=== PATIENT | male | born 1970 | race Caucasian/White ===

== ENCOUNTER 2018-11-30 16:41 | Inpatient (IN) | payer OTHER ==
[2018-11-30] MEDS ORDERED: ZOLPIDEM 5 MG TAB PO (17:00)
[2018-11-30] MEDS ORDERED: VANCOMYCIN IV PER PHARMACY XX (17:00)
[2018-11-30] MEDS: morphine 2 MG INJ IV (17:22)
[2018-11-30] MEDS: LORAZEPAM 2 MG INJ IV (17:22)
[2018-11-30 18:29] LABS: BLOOD UREA NITROGEN 10 mg/dl (7-20)
[2018-11-30 18:29] LABS: CREATININE 0.62 mg/dl (0.61-1.24)
[2018-11-30] MEDS: VANCOMYCIN 1.5 GM/NS 250 ML 250 ML IVPB (20:38)
[2018-11-30] MEDS: ACETAMINOPHEN 325 MG TAB PO (20:39)
[2018-11-30] MEDS: CEFEPIME 1GM/50 ML (PMX) 50 ML IVPB (23:39)
[2018-12-01] MEDS: VANCOMYCIN 750 MG (PMX) 250 ML IVPB ×2 (05:05→14:30)
[2018-12-01 05:44] LABS: ADD MAN DIFF? NO
[2018-12-01 05:55] LABS: BASOPHIL # 0.1 10^3/ul (0.0-0.1); BASOPHILS % 0.4 % (0.0-2.0); EOSINOPHILS % 0.2 % (0.0-7.0); HEMATOCRIT 26.6 % (42.0-52.0); HEMOGLOBIN 8.9 g/dl (14.0-18.0); LYMPHOCYTES # 1.7 10^3/ul (0.8-2.9); LYMPHOCYTES % 14.3 % (15.0-51.0); MEAN CORPUSCULAR HEMOGLOBIN 32.8 pg (29.0-33.0); MEAN CORPUSCULAR HGB CONC 33.5 g/dl (32.0-37.0); MEAN CORPUSCULAR VOLUME 98.2 fl (82.0-101.0); MEAN PLATELET VOLUME 9.8 fl (7.4-10.4); MONOCYTE # 1.5 10^3/ul (0.3-0.9); MONOCYTES % 12.2 % (0.0-11.0); NEUTROPHIL # 8.6 10^3/ul (1.6-7.5); NEUTROPHILS % 72.1 % (39.0-77.0); PLATELET COUNT 198 10^3/UL (140-415); RED BLOOD COUNT 2.71 10^6/ul (4.70-6.10); RED CELL DISTRIBUTION WIDTH 11.9 % (11.5-14.5)
[2018-12-01 06:10] LABS: HEMOGLOBIN A1C 5.3 % (0-5.9)
[2018-12-01 06:39] LABS: ANION GAP 9 (5-13); BLOOD UREA NITROGEN 9 mg/dl (7-20); CARBON DIOXIDE 28 mmol/L (21-31); CHLORIDE 96 mmol/L (97-110); CREATININE 0.53 mg/dl (0.61-1.24); Estimated GFR > 60 mL/min (>60); GLUCOSE 128 mg/dl (70-220); MAGNESIUM 1.5 mg/dl (1.7-2.5); PHOSPHORUS 1.7 mg/dl (2.5-4.9); POTASSIUM 3.8 mmol/L (3.5-5.1); SODIUM 133 mmol/L (135-144)
[2018-12-01] MEDS: SOD CHLORIDE 0.9% 1,000 ML IV ×3 (07:52→18:38)
[2018-12-01] MEDS: ACETAMINOPHEN 325 MG TAB PO (07:53)
[2018-12-01] MEDS: HYDROCODONE/APAP (5/325) TAB PO ×2 (08:30→15:37)
[2018-12-01] MEDS: CHLORDIAZEPOXIDE 25 MG CAP PO ×3 (08:30→21:43)
[2018-12-01] MEDS: MULTIVITAMINS THERAPEUTIC TAB PO (08:30)
[2018-12-01] MEDS: FOLIC ACID 1 MG TAB PO (08:30)
[2018-12-01] MEDS: AMLODIPINE 5 MG TAB PO (08:31)
[2018-12-01] MEDS: CEFEPIME 1GM/50 ML (PMX) 50 ML IVPB ×2 (08:31→21:34)
[2018-12-01] MEDS: THIAMINE 100 MG TAB PO (08:31)
[2018-12-01] MEDS: MAGNESIUM SULFATE 2 GM/50 ML 50 ML IVPB (09:34)
[2018-12-01] MEDS: POTASSIUM CHLORIDE 100 ML IVPB (12:18)
[2018-12-01] MEDS: SOD CHLORIDE 0.9% 100 ML (16:44)
[2018-12-01] MEDS: IOHEXOL 300MG/ML 150 ML BTL (16:44)
[2018-12-01 20:05] LABS: ADD UMIC NO; UR ASCORBIC ACID NEGATIVE (NEGATIVE); UR BILIRUBIN (Dip) NEGATIVE (NEGATIVE); UR BLOOD (Dip) NEGATIVE (NEGATIVE); UR CLARITY CLEAR (CLEAR); UR COLOR YELLOW (YELLOW); UR GLUCOSE (Dip) NEGATIVE (NEGATIVE); UR KETONES (Dip) TRACE mg/dL (NEGATIVE); UR LEUKOCYTE ESTERASE (Dip) NEGATIVE Leu/ul (NEGATIVE); UR NITRITE (Dip) NEGATIVE (NEGATIVE); UR SPECIFIC GRAVITY (Dip) 1.038 (1.003-1.030); UR TOTAL PROTEIN (Dip) NEGATIVE (NEGATIVE); UR UROBILINOGEN (Dip) 2+ mg/dL (NEGATIVE)
[2018-12-01 20:28] LABS: VANCOMYCIN,TROUGH 7.9 ug/ml (10.0-20.0)
[2018-12-01] MEDS: VANCOMYCIN 1 GM 250 ML IVPB (21:34)
[2018-12-01] MEDS: morphine 2 MG INJ IV (21:56)
[2018-12-02] MEDS: VANCOMYCIN 1 GM 250 ML IVPB ×3 (04:38→20:35)
[2018-12-02] MEDS: SOD CHLORIDE 0.9% 1,000 ML IV ×3 (05:18→23:28)
[2018-12-02 06:51] LABS: ADD MAN DIFF? NO
[2018-12-02 06:53] LABS: BASOPHILS % 0.5 % (0.0-2.0); EOSINOPHILS % 0.4 % (0.0-7.0); HEMATOCRIT 26.9 % (42.0-52.0); HEMOGLOBIN 8.9 g/dl (14.0-18.0); LYMPHOCYTES # 1.4 10^3/ul (0.8-2.9); LYMPHOCYTES % 17.9 % (15.0-51.0); MEAN CORPUSCULAR HEMOGLOBIN 33.2 pg (29.0-33.0); MEAN CORPUSCULAR HGB CONC 33.1 g/dl (32.0-37.0); MEAN CORPUSCULAR VOLUME 100.4 fl (82.0-101.0); MEAN PLATELET VOLUME 9.8 fl (7.4-10.4); MONOCYTE # 0.9 10^3/ul (0.3-0.9); MONOCYTES % 11.1 % (0.0-11.0); NEUTROPHIL # 5.6 10^3/ul (1.6-7.5); NEUTROPHILS % 69.6 % (39.0-77.0); PLATELET COUNT 237 10^3/UL (140-415); RED BLOOD COUNT 2.68 10^6/ul (4.70-6.10); RED CELL DISTRIBUTION WIDTH 11.8 % (11.5-14.5)
[2018-12-02 07:15] LABS: ANION GAP 10 (5-13); BLOOD UREA NITROGEN 7 mg/dl (7-20); CALCIUM 7.9 mg/dl (8.4-10.2); CARBON DIOXIDE 27 mmol/L (21-31); CHLORIDE 100 mmol/L (97-110); CREATININE 0.51 mg/dl (0.61-1.24); Estimated GFR > 60 mL/min (>60); GLUCOSE 110 mg/dl (70-220); MAGNESIUM 1.8 mg/dl (1.7-2.5); POTASSIUM 3.2 mmol/L (3.5-5.1); SODIUM 137 mmol/L (135-144)
[2018-12-02] MEDS: THIAMINE 100 MG TAB PO (08:57)
[2018-12-02] MEDS: NEOMYC/POLYMYX/BACIT 30 GM OINT TOP (08:57)
[2018-12-02] MEDS: DOCUSATE SODIUM 100 MG CAP PO (08:57)
[2018-12-02] MEDS: CEFEPIME 1GM/50 ML (PMX) 50 ML IVPB ×2 (08:57→20:35)
[2018-12-02] MEDS: FOLIC ACID 1 MG TAB PO (08:58)
[2018-12-02] MEDS: AMLODIPINE 5 MG TAB PO (08:58)
[2018-12-02] MEDS: CHLORDIAZEPOXIDE 25 MG CAP PO ×3 (08:58→20:35)
[2018-12-02] MEDS: MULTIVITAMINS THERAPEUTIC TAB PO (08:58)
[2018-12-02] MEDS: morphine 2 MG INJ IV ×2 (09:10→16:11)
[2018-12-02] MEDS: ACETAMINOPHEN 325 MG TAB PO (09:18)
[2018-12-02] MEDS: POTASSIUM CHLORIDE (SR) 20 MEQ TAB PO (17:58)
[2018-12-02] MEDS: HYDROCODONE/APAP (5/325) TAB PO ×2 (18:06→23:23)
[2018-12-02] MEDS: ONDANSETRON 4 MG INJ IV (18:07)
[2018-12-03 03:52] LABS: ADD MAN DIFF? NO
[2018-12-03 04:05] LABS: WHITE BLOOD COUNT 6.8 10^3/ul (4.8-10.8)
[2018-12-03 04:05] LABS: BASOPHIL # 0.1 10^3/ul (0.0-0.1); BASOPHILS % 0.7 % (0.0-2.0); EOSINOPHILS # 0.1 10^3/ul (0.0-0.5); EOSINOPHILS % 0.7 % (0.0-7.0); HEMATOCRIT 24.5 % (42.0-52.0); LYMPHOCYTES # 1.5 10^3/ul (0.8-2.9); LYMPHOCYTES % 22.3 % (15.0-51.0); MEAN CORPUSCULAR HEMOGLOBIN 32.9 pg (29.0-33.0); MEAN CORPUSCULAR HGB CONC 32.7 g/dl (32.0-37.0); MEAN CORPUSCULAR VOLUME 100.8 fl (82.0-101.0); MEAN PLATELET VOLUME 9.3 fl (7.4-10.4); NEUTROPHIL # 4.2 10^3/ul (1.6-7.5); NEUTROPHILS % 61.7 % (39.0-77.0); PLATELET COUNT 272 10^3/UL (140-415); RED BLOOD COUNT 2.43 10^6/ul (4.70-6.10); RED CELL DISTRIBUTION WIDTH 11.9 % (11.5-14.5)
[2018-12-03 04:12] LABS: ANION GAP 8 (5-13); BLOOD UREA NITROGEN 6 mg/dl (7-20); CARBON DIOXIDE 27 mmol/L (21-31); CHLORIDE 101 mmol/L (97-110); CREATININE 0.58 mg/dl (0.61-1.24); Estimated GFR > 60 mL/min (>60); GLUCOSE 107 mg/dl (70-220); POTASSIUM 3.9 mmol/L (3.5-5.1); SODIUM 136 mmol/L (135-144)
[2018-12-03 04:46] LABS: VANCOMYCIN,TROUGH 9.9 ug/ml (10.0-20.0)
[2018-12-03] MEDS: SOD CHLORIDE 0.9% 1,000 ML IV (05:20)
[2018-12-03] MEDS: VANCOMYCIN 1 GM 250 ML IVPB (05:20)
[2018-12-03] MEDS: morphine 2 MG INJ IV ×3 (05:31→15:58)
[2018-12-03] MEDS: CEFEPIME 1GM/50 ML (PMX) 50 ML IVPB ×2 (09:47→20:29)
[2018-12-03] MEDS: AMLODIPINE 5 MG TAB PO (09:48)
[2018-12-03] MEDS: THIAMINE 100 MG TAB PO (09:48)
[2018-12-03] MEDS: MULTIVITAMINS THERAPEUTIC TAB PO (09:48)
[2018-12-03] MEDS: CHLORDIAZEPOXIDE 25 MG CAP PO ×3 (09:48→20:29)
[2018-12-03] MEDS: FOLIC ACID 1 MG TAB PO (09:48)
[2018-12-03] MEDS: NEOMYC/POLYMYX/BACIT 30 GM OINT TOP (09:49)
[2018-12-03 12:02] LABS: ADD MAN DIFF? NO
[2018-12-03 12:09] LABS: BASOPHILS % 0.6 % (0.0-2.0); EOSINOPHILS # 0.1 10^3/ul (0.0-0.5); EOSINOPHILS % 0.9 % (0.0-7.0); HEMATOCRIT 26.1 % (42.0-52.0); HEMOGLOBIN 8.3 g/dl (14.0-18.0); LYMPHOCYTES # 1.1 10^3/ul (0.8-2.9); LYMPHOCYTES % 21.3 % (15.0-51.0); MEAN CORPUSCULAR HEMOGLOBIN 32.7 pg (29.0-33.0); MEAN CORPUSCULAR HGB CONC 31.8 g/dl (32.0-37.0); MEAN CORPUSCULAR VOLUME 102.8 fl (82.0-101.0); MEAN PLATELET VOLUME 9.5 fl (7.4-10.4); MONOCYTE # 0.8 10^3/ul (0.3-0.9); MONOCYTES % 14.1 % (0.0-11.0); NEUTROPHIL # 3.3 10^3/ul (1.6-7.5); NEUTROPHILS % 62.5 % (39.0-77.0); PLATELET COUNT 304 10^3/UL (140-415); RED BLOOD COUNT 2.54 10^6/ul (4.70-6.10); RED CELL DISTRIBUTION WIDTH 11.9 % (11.5-14.5)
[2018-12-03 12:09] LABS: WHITE BLOOD COUNT 5.3 10^3/ul (4.8-10.8)
[2018-12-03] MEDS: VANCOMYCIN 1.25 GM/NS 250 ML 250 ML IVPB ×2 (13:13→21:39)
[2018-12-03] MEDS: DOCUSATE SODIUM 100 MG CAP PO (17:00)
[2018-12-04] MEDS: morphine 2 MG INJ IV ×3 (03:29→20:24)
[2018-12-04] MEDS: VANCOMYCIN 1.25 GM/NS 250 ML 250 ML IVPB ×3 (04:46→21:54)
[2018-12-04] MEDS: DOCUSATE SODIUM 100 MG CAP PO ×2 (04:47→08:29)
[2018-12-04 05:47] LABS: ADD MAN DIFF? NO; BASOPHIL # 0.1 10^3/ul (0.0-0.1); BASOPHILS % 0.9 % (0.0-2.0); EOSINOPHILS # 0.1 10^3/ul (0.0-0.5); EOSINOPHILS % 0.9 % (0.0-7.0); HEMATOCRIT 25.8 % (42.0-52.0); HEMOGLOBIN 8.2 g/dl (14.0-18.0); LYMPHOCYTES # 1.4 10^3/ul (0.8-2.9); LYMPHOCYTES % 21.4 % (15.0-51.0); MEAN CORPUSCULAR HEMOGLOBIN 32.5 pg (29.0-33.0); MEAN CORPUSCULAR HGB CONC 31.8 g/dl (32.0-37.0); MEAN CORPUSCULAR VOLUME 102.4 fl (82.0-101.0); MEAN PLATELET VOLUME 9.3 fl (7.4-10.4); MONOCYTE # 0.7 10^3/ul (0.3-0.9); MONOCYTES % 11.7 % (0.0-11.0); NEUTROPHIL # 4.1 10^3/ul (1.6-7.5); NEUTROPHILS % 64.5 % (39.0-77.0); PLATELET COUNT 365 10^3/UL (140-415); RED BLOOD COUNT 2.52 10^6/ul (4.70-6.10)
[2018-12-04 05:47] LABS: WHITE BLOOD COUNT 6.3 10^3/ul (4.8-10.8)
[2018-12-04 06:00] LABS: ANION GAP 10 (5-13); BLOOD UREA NITROGEN 6 mg/dl (7-20); CALCIUM 8.4 mg/dl (8.4-10.2); CARBON DIOXIDE 28 mmol/L (21-31); CHLORIDE 100 mmol/L (97-110); CREATININE 0.55 mg/dl (0.61-1.24); Estimated GFR > 60 mL/min (>60); GLUCOSE 152 mg/dl (70-220); POTASSIUM 3.4 mmol/L (3.5-5.1); SODIUM 138 mmol/L (135-144)
[2018-12-04] MEDS: CEFEPIME 1GM/50 ML (PMX) 50 ML IVPB ×2 (08:28→20:27)
[2018-12-04] MEDS: AMLODIPINE 5 MG TAB PO (08:29)
[2018-12-04] MEDS: MULTIVITAMINS THERAPEUTIC TAB PO (08:29)
[2018-12-04] MEDS: FOLIC ACID 1 MG TAB PO (08:29)
[2018-12-04] MEDS: THIAMINE 100 MG TAB PO (08:32)
[2018-12-04] MEDS: NEOMYC/POLYMYX/BACIT 30 GM OINT TOP ×2 (09:00→18:48)
[2018-12-04 20:41] LABS: VANCOMYCIN,TROUGH 12.9 ug/ml (10.0-20.0)
[2018-12-05] MEDS: DOCUSATE SODIUM 100 MG CAP PO (05:00)
[2018-12-05] MEDS: VANCOMYCIN 1.25 GM/NS 250 ML 250 ML IVPB (05:11)
[2018-12-05] MEDS: HYDROCODONE/APAP (5/325) TAB PO (06:27)
[2018-12-05] MEDS: CEFEPIME 1GM/50 ML (PMX) 50 ML IVPB (09:30)
[2018-12-05] MEDS: THIAMINE 100 MG TAB PO (09:30)
[2018-12-05] MEDS: FOLIC ACID 1 MG TAB PO (09:30)
[2018-12-05] MEDS: MULTIVITAMINS THERAPEUTIC TAB PO (09:30)
[2018-12-05] MEDS: AMLODIPINE 5 MG TAB PO (09:31)
[2018-12-05] MEDS: NACL 0.9% 3 ML SYG IV (10:40)
[2018-12-05] MEDS: CLINDAMYCIN 300 MG CAP PO (13:10)
== END 2018-12-05 14:55 | disposition home or self-care (01) | DRG 872 ==
LOC: 2NE 16:41
PROVIDERS: Internal Medicine
DX: A41.9 Sepsis, unspecified organism (principal); L03.113 Cellulitis of right upper limb; Z59.0 Homelessness; S01.91XD Laceration without foreign body of unspecified part of head, subsequent encounter; I10 Essential (primary) hypertension; B18.2 Chronic viral hepatitis C; F10.229 Alcohol dependence with intoxication, unspecified; Z85.89 Personal history of malignant neoplasm of other organs and systems; Z92.3 Personal history of irradiation; Z92.21 Personal history of antineoplastic chemotherapy; Y09 Assault by unspecified means
CPT/HCPCS: 71045; 73200; 80048; 80202; 81003; 82565; 83036; 83735; 84100; 84520; 85025; 87040-91; 87070; 87081; 87086